=== PATIENT | female | born 1985 | race Two or more races ===

== ENCOUNTER 2016-11-01 15:46 | Emergency (ER) | payer MEDICAID, OTHER ==
[~2016-11-01] VITALS: Ht 165.1 cm; Wt 69.9 kg
[2016-11-01 20:00] VITALS: BP 110/72
== END 2016-11-01 20:08 | disposition home or self-care (01) ==
LOC: ER 15:53
DX: S61.012A Laceration without foreign body of left thumb without damage to nail, initial encounter (principal); W26.0XXA Contact with knife, initial encounter; Y93.G1 Activity, food preparation and clean up; Y99.8 Other external cause status; Y92.89 Other specified places as the place of occurrence of the external cause
CPT/HCPCS: 12001